=== PATIENT | male | born 1970 | race Caucasian/White ===

== ENCOUNTER 2022-03-07 05:16 | Day surgery (SDC) | payer BC ==
[2022-03-03 15:19] VITALS: BMI 27.9
[2022-03-07] MEDS ORDERED: MIDAZOLAM HCL 2 MG/2 ML SINGLE DOSE VIAL ONE (12:26)
[2022-03-07] MEDS ORDERED: PROPOFOL 20 ML ONE ×2 (12:27)
[2022-03-07] MEDS ORDERED: ceFAZolin SODIUM 1 GM VIAL IVPB ONE (13:05)
[2022-03-07] MEDS ORDERED: PROMETHAZINE HCL 25 MG/1 ML VIAL IVPUSH PRN (13:59)
[2022-03-07] MEDS ORDERED: oxyCODONE HCL 5 MG TABLET PO PRN (13:59)
[2022-03-07] MEDS ORDERED: ONDANSETRON 4 MG/2 ML VIAL IVPUSH PRN (13:59)
[2022-03-07] MEDS ORDERED: LACTATED RINGERS SOLUTION 1,000 ML IV SCH (14:00)
[2022-03-07 16:22] VITALS: RESP 18
[2022-03-07 16:49] VITALS: BP 117/72; PULSE 64; TEMP 97.3
== END 2022-03-07 17:20 | disposition home or self-care (01) ==
LOC: JASU-SURG 05:16
PROVIDERS: ATTEND Urology
PROC: 0TND8ZZ Release Urethra, Via Natural or Artificial Opening Endoscopic (ICD-10-PCS; principal; 2022-03-07 13:00)
DX: N35.912 Unspecified bulbous urethral stricture, male (principal); N40.0 Benign prostatic hyperplasia without lower urinary tract symptoms
CPT/HCPCS: 87086; 94760